=== PATIENT | female | born 1980 ===

== ENCOUNTER 2024-05-10 05:45 | Day surgery (SDC) | payer OTHER ==
[2024-05-03 17:23] LABS: COL EPI 163 SECONDS (82-175)
[~2024-05-10 05:45] MED LIST: IRON325 MG PO; TRANEXAMIC ACI650 MG PO
[2024-05-10] MEDS ORDERED: CHLORHEXIDINE GLUCONATE 120 ML BOTTLE TOP ONE (11:12)
[2024-05-10] MEDS ORDERED: POVIDONE-IODINE 118 ML BOTT TOP ONE (11:12)
[2024-05-10] MEDS ORDERED: MORPHINE SULFATE 4 MG/ML VIAL IV PRN (15:45)
== END 2024-05-10 16:40 | disposition home or self-care (01) ==
LOC: CIR.AMB 05:45
PROVIDERS: ATTEND Obstetrics & Gynecology
DX: N84.0 Polyp of corpus uteri (principal); D25.0 Submucous leiomyoma of uterus; N93.9 Abnormal uterine and vaginal bleeding, unspecified; Z91.013 Allergy to seafood; D64.9 Anemia, unspecified; H52.209 Unspecified astigmatism, unspecified eye; H52.10 Myopia, unspecified eye